=== PATIENT | female | born 1980 | race African-American/Black ===

== ENCOUNTER 2017-05-18 17:37 | Emergency (ER) | payer MEDICAID, OTHER ==
[~2017-05-18] VITALS: Ht 162.6 cm; Wt 75.0 kg
[~2017-05-18 17:37] MED LIST: ASCO500; THERPAK OR; [UNRECOGNIZED DRUG - CODE] MT
[2017-05-18 17:38] VITALS: BP 140/93; PULSE 84; RESP 20; TEMP 98.8; O2SAT 100
--- NOTE | 2017-05-18 17:46 | PD ---
Physical Exam Time Seen by Provider: 17:45 Narrative 37yo F c/o possible spider bit to R lower leg Monday. Unknown tetanus status. Denies fever, vomiting. Patient seen in triage. VS reviewed. Awaiting bed placement. Data Data Last Documented VS Vital Signs Date Time Temp Pulse Resp B/P (MAP) Pulse Ox O2 Delivery O2 Flow Rate FiO2 05/18/17 17:38 98.8 84 20 140/93 (109) 100 Room Air MDM Supervised Visit with DELILAH: Janae Campuzano May 18, 2017 17:46
[2017-05-18] MEDS ORDERED: TETANUS/DIPHTHERIA TOXOID ADULT 0.5 ML VIAL IM ONE (18:15)
--- NOTE | 2017-05-18 18:15 | PD ---
HPI Chief Complaint: Skin Problem Time Seen by Provider: 17:59 Travel History International Travel<30 days: No Contact w/Intl Traveler<30days: No Traveled to known affect area: No History of Present Illness HPI 37-year-old Afro-[place] female presents the emergency department with probable insect bite to the right lower medial leg which occurred 5 days ago. Patient states it had a blister over it until yesterday. There is now an open lesion approximately the size of a quarter localized tenderness, induration, and erythema. There is serous drainage from the wound. Patient has no history of previous MRSA. Pain is a 6 out of 10. She denies fever or chills. Patient has no known drug allergies. PFSH Past Medical History ?: Not Tubal Ligation: Yes Social History Alcohol Use: Yes Tobacco Use: No Substance Use: No Allergies-Medications (Allergen,Severity, Reaction): Coded Allergies: No Known Allergies (Verified , 09/07/12) Reported Meds & Prescriptions Reported Meds & Active Scripts Active Reported Theraflu Severe Cold & Co (Phenylephrine-Diphenhydramine-) Joel 1 OR DIRECTED Vitamin C 500 Mg Tab (Ascorbic Acid) 500 Mg Tab 500 Mg .XX DIRECTED Zinc Cold Relief (Zinc Gluconate) 13.3 Mg Keshawn 13.3 Mg MT Review of Systems Except as stated in HPI: all other systems reviewed are Neg General / Constitutional: No: Fever Eyes: No: Visual changes HENT: No: Headaches Cardiovascular: No: Chest Pain or Discomfort Respiratory: No: Shortness of Breath Gastrointestinal: No: Abdominal Pain Genitourinary: No: Dysuria Musculoskeletal: No: Pain Skin: Positive Lesions (see history present illness.), No Rash Neurologic: No: Weakness Psychiatric: No: Depression Endocrine: No: Polydipsia Hematologic/Lymphatic: No: Easy Bruising Physical Exam Narrative GENERAL: Patient is in no acute distress. SKIN: Warm and dry. Patient has a quarter size erosive-type lesion to the right medial lower leg with localized induration, warmth, erythema, and serous drainage. There is no streaking. HEAD: Atraumatic. Normocephalic. EYES: Pupils equal and round. No scleral icterus. No injection or drainage. ENT: No nasal bleeding or discharge. Mucous membranes pink and moist. Pharynx is clear. NECK: Trachea midline. Supple and nontender. CARDIOVASCULAR: Regular rate and rhythm. RESPIRATORY: No accessory muscle use. Clear to auscultation. Breath sounds equal bilaterally. MUSCULOSKELETAL: Extremities without clubbing, cyanosis, or edema. No obvious deformities. NEUROLOGICAL: Awake and alert. No obvious cranial nerve deficits. Motor grossly within normal limits. Five out of 5 muscle strength in the arms and legs. Normal speech. PSYCHIATRIC: Appropriate mood and affect; insight and judgment normal. Data Data Last Documented VS Vital Signs Date Time Temp Pulse Resp B/P (MAP) Pulse Ox O2 Delivery O2 Flow Rate FiO2 05/18/17 17:38 98.8 84 20 140/93 (109) 100 Room Air Orders Orders Wound Culture And Gram Stain (05/18/17 18:08) Tetanus/Diphtheria Tox Adult (Tetanus/Di (05/18/17 18:15) MDM Medical Decision Making Medical Screen Exam Complete: Yes Emergency Medical Condition: Yes Differential Diagnosis Insect bite. Cellulitis. MRSA. Narrative Course Wound culture sent to the lab. Patient is given tetanus 0.5 mg IM. Patient is prescribed Bactroban ointment to be used twice daily as discussed after cleaning with soap and water. Patient is placed on Bactrim DS twice a day 7 days. Patient to follow-up if symptoms do not improve as discussed. Diagnosis Primary Impression: Insect bite of leg, right, infected Qualified Codes: S80.861A - Insect bite (nonvenomous), right lower leg, initial encounter; L08.9 - Local infection of the skin and subcutaneous tissue, unspecified; W57.XXXA - Bitten or stung by nonvenomous insect and other nonvenomous arthropods, initial encounter Referrals: Primary Care Physician Patient Instructions: Cellulitis (ED), General Instructions, Insect Bite or Sting (ED) Additional Instructions: Wound culture sent to the lab. Patient is given tetanus 0.5 mg IM. Patient is prescribed Bactroban ointment to be used twice daily as discussed after cleaning with soap and water. Patient is placed on Bactrim DS twice a day 7 days. Patient to follow-up if symptoms do not improve as discussed. Med/Other Pt SpecificInfo: Prescription(s) given Disposition: 01 DISCHARGE HOME Condition: Stable Uday Quijano May 18, 2017 18:15
[2017-05-18] MEDS ORDERED: MUPI2%T TOPICAL (18:16)
[2017-05-18] MEDS ORDERED: BACT800T5 PO (18:16)
== END 2017-05-18 18:53 | disposition home or self-care (01) ==
LOC: NEPK 17:37
DX: S80.861A Insect bite (nonvenomous), right lower leg, initial encounter (principal); A49.01 Methicillin susceptible Staphylococcus aureus infection, unspecified site; Z23 Encounter for immunization; W57.XXXA Bitten or stung by nonvenomous insect and other nonvenomous arthropods, initial encounter
CPT/HCPCS: 86403; 87070; 87186; 87205; 90471; 90714

== ENCOUNTER 2017-06-20 16:57 | Emergency (ER) | payer OTHER ==
[~2017-06-20] VITALS: Ht 162.6 cm; Wt 85.0 kg
[~2017-06-20 16:57] MED LIST changes: +BACT800T5 PO; +MUPI2%T TOPICAL
[2017-06-20 17:10] VITALS: BP 124/78; PULSE 79; RESP 16; TEMP 99.2; O2SAT 100
[2017-06-20] MEDS ORDERED: BACT800T5 PO (17:39)
[2017-06-20] MEDS ORDERED: NORC5TAB PO (17:39)
[2017-06-20] MEDS ORDERED: IBUP-232 PO (17:39)
--- NOTE | 2017-06-20 17:39 | PD ---
HPI Chief Complaint: Bite or Sting Time Seen by Provider: 17:16 Travel History International Travel<30 days: No Contact w/Intl Traveler<30days: No Traveled to known affect area: No History of Present Illness HPI The patient is a 37-year-old [place] female who presents emergency department for a slow healing lesion on the right lower extremity. The patient states she had a larger lesion on the right lower extremity, possibly from a spider bite, that occurred 5 weeks ago. The patient was seen in emergency department at [facility] for drainage, had a culture obtained and was discharged home on Bactrim and Bactroban. The patient took the Bactrim as prescribed, however, cannot afford the Bactroban because it was $60. The patient states the lesion has been healing and getting smaller, however, is now once again painful. She does note a small amount of crusting over the lesion but denies any acute drainage. She denies any history of diabetes or immunologic disorders. The patient does not currently have a primary physician. Symptoms are mild to moderate, there are no current alleviating or exacerbating factors. PFSH Past Medical History ?: Not LMP: 06/13/17 Tubal Ligation: Yes Social History Alcohol Use: Yes Tobacco Use: No Substance Use: No Allergies-Medications (Allergen,Severity, Reaction): Coded Allergies: No Known Allergies (Verified , 06/20/17) Reported Meds & Prescriptions Reported Meds & Active Scripts Active Bactrim DS (Sulfamethoxazole-Trimethoprim) 800-160 Mg Tab 1 Tab PO BID Bactroban Topical (Mupirocin) 22 Gm Cream 1 Applic TOPICAL BID Review of Systems General / Constitutional: No: Fever Musculoskeletal: Positive: Pain Skin: Positive Other (as noted in the history of present illness) Neurologic: No: Paresthesia, Sensory Disturbance Endocrine: No: Other (no history of diabetes) Physical Exam Narrative GENERAL: Awake, alert, pleasant 37-year-old female who appears her stated age and is in no acute respiratory distress. SKIN: Focused skin assessment warm/dry. HEAD: Atraumatic. Normocephalic. EYES: No injection or drainage. ENT: No nasal bleeding or discharge. Mucous membranes pink and moist. NECK: Trachea midline. No JVD. MUSCULOSKELETAL: The patient has an ulcerated lesion on the medial aspect of the right lower extremity about 1.5 cm in diameter with a small eschar over the top. No visible drainage. Positive right dorsalis pedal pulse. NEUROLOGICAL: Awake and alert. No obvious cranial nerve deficits. Motor grossly within normal limits. Normal speech. PSYCHIATRIC: Appropriate mood and affect; insight and judgment normal. Data Data Last Documented VS Vital Signs Date Time Temp Pulse Resp B/P (MAP) Pulse Ox O2 Delivery O2 Flow Rate FiO2 06/20/17 17:10 99.2 79 16 124/78 (93) 100 MDM Medical Decision Making Medical Screen Exam Complete: Yes Emergency Medical Condition: Yes Medical Record Reviewed: Yes Differential Diagnosis Differential diagnosis includes infected ulcer, cellulitis, abscess, PVD, spider bite. Narrative Course The patient has a slow healing ulceration the right lower extremity that may be secondary to a spider bite versus ulceration with secondary cellulitis. The patient received an initial dose of Bactrim with good results, she states it has been healing well, but recently became painful. I did provide the ulcer with sterile saline and 4 x 4's and took off the top eschar layer, there was good underlying tissue with small amount of bleeding. The patient will be placed back on Bactrim, is advised to scrub the area twice a day with soap and water to the bride the tissue, and notes that it will take 6-8 weeks to heal. She is advised to follow-up with a primary physician. Diagnosis Primary Impression: Infected ulcer of skin Qualified Codes: L98.491 - Non-pressure chronic ulcer of skin of other sites limited to breakdown of skin; L08.9 - Local infection of the skin and subcutaneous tissue, unspecified Patient Instructions: General Instructions Additional Instructions: Scrub the ulcer twice a day. Antibiotics as directed. Follow-up with your primary physician. Return if symptoms worsen or progress. Med/Other Pt SpecificInfo: Prescription(s) given Scripts Hydrocodone-Acetaminophen ([place]) 5-325 mg Tab 1 TAB PO Q6H Y for PAIN, #10 TAB 0 Refills Prov: Gino Jenkins MD 06/20/17 Ibuprofen (Ibuprofen) 600 Mg Tab 600 MG PO Q6H Y for Pain/Inflammation, #20 TAB 0 Refills Prov: Gino Jenkins MD 06/20/17 Sulfamethoxazole-Trimethoprim (Bactrim DS) 800-160 Mg Tab 1 TAB PO BID for Infection, #14 TAB 0 Refills Prov: Gino Jenkins MD 06/20/17 Disposition: 01 DISCHARGE HOME Condition: Stable Gino Jenkins MD Jun 20, 2017 17:39
[2017-06-20] MEDS ORDERED: IBUPROFEN 200 MG TAB PO ONE (17:45)
== END 2017-06-20 18:01 | disposition home or self-care (01) ==
LOC: PHEFT 16:57
DX: L98.491 Non-pressure chronic ulcer of skin of other sites limited to breakdown of skin (principal); L08.9 Local infection of the skin and subcutaneous tissue, unspecified
CPT/HCPCS: 99283

== ENCOUNTER 2017-06-25 20:13 | Emergency (ER) | payer OTHER ==
[~2017-06-25] VITALS: Ht 162.6 cm; Wt 83.5 kg
[~2017-06-25 20:13] MED LIST changes: -ASCO500; +IBUP-232 PO; +NORC5TAB PO; -THERPAK OR; -[UNRECOGNIZED DRUG - CODE] MT
[2017-06-25 20:15] VITALS: BP 141/72; PULSE 71; RESP 14; TEMP 98.5; O2SAT 98
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
[2017-06-26] MEDS ORDERED: ACETAMINOPHEN/HYDROcodone 325 MG/5 MG TAB PO ONE
[2017-06-26] MEDS ORDERED: CYCLOBENZAPRINE HCL 10 MG TAB PO ONE
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
[2017-06-26] MEDS ORDERED: CYCL5TAB PO (00:35)
== END 2017-06-26 00:49 | disposition home or self-care (01) ==
LOC: NEPD 20:13
DX: S13.4XXA Sprain of ligaments of cervical spine, initial encounter (principal); M54.89 Other dorsalgia; V43.52XA Car driver injured in collision with other type car in traffic accident, initial encounter; Y92.410 Unspecified street and highway as the place of occurrence of the external cause
CPT/HCPCS: 72050; 72072; 99283